=== PATIENT | female | born 1950 | race Caucasian/White ===

== ENCOUNTER → 2024-02-11 15:18 | Outpatient (REF) | payer MEDICARE, BC, SELFPAY | LOC: HWRAD 15:18 | PROVIDERS: ATTENDING PHYSICIAN Internal Medicine Critical Care Medicine; FAMILY PHYSICIAN Family Medicine | DX: R09.02 Hypoxemia (principal) | CPT/HCPCS: 71250 ==

== ENCOUNTER → 2024-03-26 13:22 | Outpatient (REF) | payer MEDICARE, BC, SELFPAY ==
[2024-03-26 14:47] LABS: Hematocrit 45.2 % (37.0-47.0); Hemoglobin 14.5 g/dL (12.0-16.0); Mean Corp Hgb Conc. 32.1 g/dL (33.0-37.0); Mean Corpuscular Hgb 28.4 pg (27.0-31.0); Mean Corpuscular Volume 88.6 fL (81.0-99.0); Mean Platelet Volume 12.7 fL (7.4-10.4); Platelet Count 154 10^3/uL (130-400); Red Cell Dist. Width 13.4 % (11.5-14.5); White Blood Cell Count 7.9 10^3/uL (4.8-10.8)
[2024-03-26 14:59] LABS: APTT 28.9 Sec (23.4-35.0)
[2024-03-26 15:04] LABS: ALT (SGPT) 30 U/L (0-35); AST (SGOT) 32 U/L (14-36); Albumin 3.9 g/dl (3.5-5.0); Alkaline Phosphatase 59 U/L (38-126); Blood Urea Nitrogen 24 mg/dl (7-17); Carbon Dioxide 30 mmol/L (22-30); Chloride 102 mmol/L (98-107); Glucose 132 mg/dl (70-99); Potassium 4.6 mmol/L (3.5-5.1); Sodium 139 mmol/L (135-145); Total Bilirubin 0.6 mg/dl (0.2-1.3); Total Protein 6.3 g/dl (6.3-8.2); eGFR > 60.00
== END ==
LOC: HWLAB 13:22
PROVIDERS: ATTENDING PHYSICIAN Physician Assistant Medical; FAMILY PHYSICIAN Family Medicine
DX: I50.20 Unspecified systolic (congestive) heart failure (principal); I48.0 Paroxysmal atrial fibrillation; I42.9 Cardiomyopathy, unspecified
CPT/HCPCS: 36415; 80053; 85027; 85610; 85730

== ENCOUNTER 2024-04-01 06:42 | Day surgery (SDC) | payer MEDICARE, BC, SELFPAY ==
[2024-04-01 07:06] VITALS: BP 112/64
[2024-04-01 07:43] VITALS: BP 112/64
[2024-04-01 07:50] LABS: Glucose - Point of Care 86 mg/dl (70-99)
[2024-04-01 07:51] VITALS: BMI 36.0
[2024-04-01] MEDS: NSS 277 ML IV (07:52)
[2024-04-01] MEDS: LOW STRENGTH ASPIRIN 81 MG PO (07:53)
[2024-04-01 09:34] VITALS: BP 128/64
--- NOTE | 2024-04-01 09:41 | ITS.CL.CATH ---
[facility] - Catheterization
Cardiac Catheterization
Procedure Report:
LEFT AND RIGHT HEART CATHETERIZATION
Date of Procedure: April 01, 2024
Referring: AYANNA Patel and Veronica Mcintosh MD
PROCEDURES:
1. Left heart catheterization, coronary angiogram.
2. Ultrasound-guided access.
3. Right heart catheterization
INDICATION: New cardiomyopathy
ACCESS:
1. Right radial artery, 6 Fr sheath, under ultrasound guidance.
2. Right brachial vein, 6 Wolof sheath
HEMODYNAMICS : (mmHg)
RA (m) : 15
RV (s/d,m) : 48/5, 14
PA (s/d, m) : 49/27, 35
PCWP (m) : 25
PA saturation: 65.5% on room air
AO saturation: 93.2% on room air
RA saturation: 64.7% on room air
Cardiac Output : 3.65 L/min
Cardiac Index : 1.88 L/min/m-2
Systemic vascular resistance: 1424 dsc^(-5)
Pulmonary vascular resistance: 2.74 barfield unit
Heart Rate: 66bpm
AO (s/d) : 114/64
LV (s/d) : 116/7
LVEDP : 22
CORONARY FINDINGS
DOMINANCE: Right
LEFT MAIN: Left main artery is a large-caliber vessel which gives rise to the left anterior descending artery and the left circumflex artery. There is minimal luminal irregularities.
LEFT ANTERIOR DESCENDING: The left anterior descending artery is a medium to large caliber vessel which gives rise to 2 major diagonal branch as it courses through the anterior interventricular groove and wraps around the apex. Prior proximal LAD
stent is widely patent. Just distal to the stent there is a tubular 40% stenosis. In the mid LAD at the level of the takeoff of D2 there is eccentric 40% stenosis.
CIRCUMFLEX: The left circumflex artery is a medium to large caliber vessel which gives rise to 2 major obtuse marginal branches. There is mild diffuse atherosclerotic plaque.
RIGHT CORONARY ARTERY: The right coronary is a medium to large caliber, dominant vessel which gives rise to the right posterior descending artery and the right posterolateral system. Mid RCA has 30% tubular stenosis and distal RCA has focal 30 to
40% stenosis.
SEDATION 30 minutes of procedural sedation was utilized. An independent medical collections representative was present to assist with and help manage the patient's level of consciousness and physiologic status.
RADIATION SUMMARY: Fluoro Time (min): 3.7, Dose (mGy): 258.4, DAP (Gy.cm2) : 17.0
Closure Device: Vascular band over right radial artery, 11 cc of air. Manual pressure was held over the right brachial venous access site with successful hemostasis.
CONCLUSIONS
1. Non-obstructive coronary artery disease.
2. Previously placed proximal LAD stent is widely patent.
3. Significantly elevated right and left-sided filling pressures with reduced cardiac output in the setting of elevated systemic vascular resistance and pulmonary hypertension.
RECOMMENDATIONS
1. Optimization of goal-directed medical therapy for nonischemic cardiomyopathy.
2. Aggressive management of cardiovascular risk factors.
3. Wean radial band per protocol. As long as there are no issues with access sites prior to discharge, can resume Eliquis starting tonight.
4. Plan for close follow-up with cardiology to continue optimization of goal-directed medical therapy and plan for repeat echocardiogram to assess improvement in LVEF.
5. Referral for outpatient cardiac rehab.
Copy to: AYANNA Patel and Veronica Mcintosh MD
Saba Vega MD, [facility], [facility]
[2024-04-01] MEDS: LASIX 80 MG IV (10:00)
[2024-04-01 10:02] VITALS: BP 130/67
[2024-04-01 10:38] VITALS: BP 128/71
== END 2024-04-01 12:30 | disposition home or self-care (01) ==
LOC: CATH 06:42
PROVIDERS: ATTENDING PHYSICIAN Internal Medicine Interventional Cardiology; FAMILY PHYSICIAN Family Medicine; OTHER PHYSICIAN Internal Medicine Cardiovascular Disease
DX: I25.10 Atherosclerotic heart disease of native coronary artery without angina pectoris (principal); Z95.5 Presence of coronary angioplasty implant and graft; I27.20 Pulmonary hypertension, unspecified; I42.8 Other cardiomyopathies; E11.9 Type 2 diabetes mellitus without complications; I10 Essential (primary) hypertension; Z79.899 Other long term (current) drug therapy; Z79.4 Long term (current) use of insulin
CPT/HCPCS: 99152; 99153; 82962; 93460; C1769; C1894; Q9967

== ENCOUNTER → 2024-04-07 13:55 | Outpatient (REF) | payer MEDICARE, BC, SELFPAY ==
[2024-04-07 16:45] LABS: Blood Urea Nitrogen 30 mg/dl (7-17); Calcium 9.2 mg/dl (8.4-10.2); Carbon Dioxide 28 mmol/L (22-30); Chloride 103 mmol/L (98-107); Glucose 141 mg/dl (70-99); Magnesium 1.6 mg/dl (1.6-2.3); Potassium 4.1 mmol/L (3.5-5.1); Sodium 141 mmol/L (135-145); eGFR 53.39
[2024-04-07 16:46] LABS: Digoxin < 0.4 ng/ml (0.8-2.0)
[2024-04-07 20:06] LABS: NT-proBNP 1070 pg/ml
== END ==
LOC: HWLAB 13:55
PROVIDERS: ATTENDING PHYSICIAN Internal Medicine Interventional Cardiology; FAMILY PHYSICIAN Family Medicine; REFERRING PHYSICIAN Internal Medicine Cardiovascular Disease
DX: I50.1 Left ventricular failure, unspecified (principal)
CPT/HCPCS: 36415; 80048; 80162; 83735; 83880

== ENCOUNTER → 2024-04-08 15:06 | Outpatient (REF) | payer MEDICARE, BC, SELFPAY | LOC: HWRAD 15:06 | PROVIDERS: ATTENDING PHYSICIAN Internal Medicine Critical Care Medicine; FAMILY PHYSICIAN Family Medicine | DX: R06.09 Other forms of dyspnea (principal) | CPT/HCPCS: 71046 ==

== ENCOUNTER 2024-04-15 07:07 | Day surgery (SDC) | payer MEDICARE, BC, SELFPAY ==
[2024-04-15 07:35] VITALS: BMI 35.1
[2024-04-15 07:48] LABS: Glucose - Point of Care 100 mg/dl (70-99)
--- NOTE | 2024-04-15 08:42 | ITS.CL.CARDI ---
[facility] - Cardioversion
Cardioversion
Procedure Report:
Procedure: WIN-guided electrical cardioversion
Pre-operative diagnosis: Persistent atrial fibrillation
Post-operative diagnosis: Persistent atrial fibrillation status post DC cardioversion to sinus rhythm
Anesthesia: MAC
Attending Physician: Ed Hernandez MD
Procedure Description: The patient was brought to the electrophysiology laboratory in the fasting state. Informed consent was obtained from the patient prior to the start of the procedure. Adherence to anticoagulation was confirmed. Electrodes were
placed on the patient and connected to an external defibrillator. Monitoring of blood pressure, ECG tracings, and pulse oximetry was initiated. The pads were applied to the patient in the anterior and posterior positions. The patient was sedated by
the anesthesiologist. A WIN (reported separately) was performed prior to the cardioversion. No left atrial or left atrial appendage thrombus was seen. After the WIN probe was removed, a 200 joule biphasic synchronized shock was delivered to the
patient under MAC anesthesia. Sinus rhythm was successfully restored. The patient recovered uneventfully from MAC anesthesia. There were no immediate post-procedure complications. The patient left the lab in good condition. The attending physician
was present throughout the entire procedure.
Impression: Successful WIN-guided direct current cardioversion with pentecostal of sinus rhythm after one 200 joule biphasic synchronized shock.
== END 2024-04-15 09:18 | disposition home or self-care (01) ==
LOC: CATH 07:07
PROVIDERS: ATTENDING PHYSICIAN Internal Medicine Cardiovascular Disease; FAMILY PHYSICIAN Family Medicine; OTHER PHYSICIAN Internal Medicine Cardiovascular Disease
DX: I48.19 Other persistent atrial fibrillation (principal); I08.1 Rheumatic disorders of both mitral and tricuspid valves; I11.0 Hypertensive heart disease with heart failure; I50.89 Other heart failure; I25.10 Atherosclerotic heart disease of native coronary artery without angina pectoris; I44.7 Left bundle-branch block, unspecified; E78.5 Hyperlipidemia, unspecified; E11.59 Type 2 diabetes mellitus with other circulatory complications; G47.33 Obstructive sleep apnea (adult) (pediatric); Z85.3 Personal history of malignant neoplasm of breast; Z85.42 Personal history of malignant neoplasm of other parts of uterus; Z79.4 Long term (current) use of insulin; Z79.82 Long term (current) use of aspirin; Z79.01 Long term (current) use of anticoagulants; Z79.84 Long term (current) use of oral hypoglycemic drugs
CPT/HCPCS: 93312; 93320; 93325; 82962; 92960; 93005

== ENCOUNTER → 2024-09-08 14:23 | Outpatient (REF) | payer MEDICARE, BC, SELFPAY | LOC: HWRAD 14:23 | PROVIDERS: ATTENDING PHYSICIAN Internal Medicine Critical Care Medicine; FAMILY PHYSICIAN Family Medicine; REFERRING PHYSICIAN Internal Medicine Cardiovascular Disease | DX: J84.9 Interstitial pulmonary disease, unspecified (principal) | CPT/HCPCS: 71250 ==

== ENCOUNTER → 2024-11-16 13:49 | Outpatient (REF) | payer MEDICARE, BC, SELFPAY | LOC: RAD 13:49 | PROVIDERS: ATTENDING PHYSICIAN Physician Assistant; FAMILY PHYSICIAN Family Medicine; REFERRING PHYSICIAN Internal Medicine Cardiovascular Disease | DX: I50.20 Unspecified systolic (congestive) heart failure (principal); I77.9 Disorder of arteries and arterioles, unspecified; I25.10 Atherosclerotic heart disease of native coronary artery without angina pectoris | CPT/HCPCS: 93306; 93880 ==

== ENCOUNTER → 2025-03-31 10:26 | Outpatient (REF) | payer MEDICARE, BC, SELFPAY ==
[2025-03-31 12:38] LABS: ALT (SGPT) 15 U/L (0-35); AST (SGOT) 19 U/L (14-36); HDL Cholesterol 81 mg/dl; LDL Cholesterol, Calculated 78 mg/dl; Total Cholesterol 170 mg/dl (50-199); Triglyceride 59 mg/dl (10-149); Very Low Density Lipoprotein 11 mg/dl (0-30)
== END ==
LOC: HWLAB 10:26
PROVIDERS: ATTENDING PHYSICIAN Internal Medicine Cardiovascular Disease; FAMILY PHYSICIAN Family Medicine
DX: E78.5 Hyperlipidemia, unspecified (principal)
CPT/HCPCS: 36415; 80061; 84450; 84460

== ENCOUNTER → 2025-05-03 11:07 | Outpatient (REF) | payer MEDICARE, BC, SELFPAY ==
[2025-05-03 15:22] LABS: ALT (SGPT) 20 U/L (0-35); AST (SGOT) 26 U/L (14-36); Albumin 4.3 g/dl (3.5-5.0); Alkaline Phosphatase 64 U/L (38-126); Blood Urea Nitrogen 31 mg/dl (7-17); Calcium 9.7 mg/dl (8.4-10.2); Carbon Dioxide 28 mmol/L (22-30); Chloride 108 mmol/L (98-107); Glucose 114 mg/dl (70-99); Potassium 5.0 mmol/L (3.5-5.1); Sodium 140 mmol/L (135-145); Total Protein 6.6 g/dl (6.3-8.2); eGFR 33.84
== END ==
LOC: HWLAB 11:07
PROVIDERS: ATTENDING PHYSICIAN Internal Medicine Cardiovascular Disease; FAMILY PHYSICIAN Family Medicine
DX: I10 Essential (primary) hypertension (principal)
CPT/HCPCS: 36415; 80053

== ENCOUNTER → 2025-05-18 12:05 | Outpatient (REF) | payer MEDICARE, BC, SELFPAY ==
[2025-05-18 15:59] LABS: Blood Urea Nitrogen 18 mg/dl (7-17); Calcium 9.5 mg/dl (8.4-10.2); Carbon Dioxide 28 mmol/L (22-30); Chloride 108 mmol/L (98-107); Glucose 116 mg/dl (70-99); Potassium 4.9 mmol/L (3.5-5.1); Sodium 139 mmol/L (135-145); eGFR 39.73
== END ==
LOC: HWLAB 12:05
PROVIDERS: ATTENDING PHYSICIAN Internal Medicine Cardiovascular Disease; FAMILY PHYSICIAN Family Medicine
DX: I50.20 Unspecified systolic (congestive) heart failure (principal); I10 Essential (primary) hypertension
CPT/HCPCS: 36415; 80048; 83880

== ENCOUNTER → 2025-09-16 13:14 | Outpatient (REF) | payer MEDICARE, BC, SELFPAY ==
[2025-09-16 15:25] LABS: Hematocrit 46.5 % (37.0-47.0); Hemoglobin 15.1 g/dL (12.0-16.0); Mean Corp Hgb Conc. 32.5 g/dL (33.0-37.0); Mean Corpuscular Volume 92.4 fL (81.0-99.0); Nucleated Red Blood Cells % 0 %; Platelet Count 147 10^3/uL (130-400); Red Cell Dist. Width 13.1 % (11.5-14.5)
[2025-09-16 15:42] LABS: ALT (SGPT) 17 U/L (0-35); AST (SGOT) 23 U/L (14-36); Albumin 4.3 g/dl (3.5-5.0); Alkaline Phosphatase 75 U/L (38-126); Blood Urea Nitrogen 39 mg/dl (7-17); Calcium 9.0 mg/dl (8.4-10.2); Carbon Dioxide 25 mmol/L (22-30); Chloride 101 mmol/L (98-107); Glucose 246 mg/dl (70-99); Potassium 5.2 mmol/L (3.5-5.1); Sodium 134 mmol/L (135-145); Total Protein 6.7 g/dl (6.3-8.2); eGFR 33.84
== END ==
LOC: HWRCS 13:14
PROVIDERS: FAMILY PHYSICIAN Family Medicine
DX: I50.22 Chronic systolic (congestive) heart failure (principal); R60.9 Edema, unspecified; R06.02 Shortness of breath
CPT/HCPCS: 36415; 71046; 80053; 83880; 84443; 85025; 93306